=== PATIENT | male | born 1985 | race Caucasian/White ===

== ENCOUNTER 2024-04-02 12:48 | Emergency (ER) | payer OTHER, SELFPAY ==
--- NOTE | ~2024-04-02 | XR_ITS ---
EXAMINATION: XR chest 2V 04/02/2024 13:24 INDICATION: Recent upper respiratory infection. Cough. PROCEDURE: 2 view chest COMPARISON: No prior studies for comparison. FINDINGS: The lungs are clear. The cardiomediastinal silhouette is within normal limits. There are no pleural effusions. There is no pneumothorax suspected. IMPRESSION: 1: NO ACUTE CARDIOPULMONARY DISEASE. Reviewed, dictated and finalized at location B.
[2024-04-02 13:02] VITALS: PULSE 82; RESP 16; O2SAT 100
[2024-04-02 13:04] VITALS: BP 119/84; PULSE 82; RESP 16; TEMP 37.1; O2SAT 100
[2024-04-02 13:15] VITALS: PULSE 85; RESP 16; O2SAT 100
--- NOTE | 2024-04-02 13:22 | ED.GENADULT ---
HPI - General Adult General Chief complaint: Upper Respiratory Infection Stated complaint: fever/sweats/bodyaches/coughing alot Source: patient Mode of arrival: ambulatory Limitations: no limitations History of Present Illness HPI narrative: Patient presents for evaluation of a cough for the last 6 days. He states the cough is productive of yellow/green sputum. He has associated SOB, wheezing, fever, chills, and fatigue. No sick contacts in the immediately past but his son had mono about four months ago. he has been alternating Tylenol and ibuprofen for his symptoms. He smokes marijuana but not cigarettes Related Data Home Medications Medication Instructions Recorded Confirmed rosuvastatin 40 mg tablet 40 mg PO HS 04/02/24 04/02/24 Allergies Allergy/AdvReac Type Severity Reaction Status Date / Time No Known Allergies Allergy Verified 04/02/24 13:03 Review of Systems Review of Systems: CONSTITUTIONAL: Reports fever, chills, fatigue EYES: Denies visual changes, redness, or discharge. ENT: Denies rhinorrhea, congestion, sore throat, or otalgia. CARDIOVASCULAR: Denies chest pain, palpitations, or edema. RESPIRATORY: reports productive cough of yellow/ green sputum with wheezing and shortness of breath GASTROINTESTINAL: Denies abdominal pain, nausea, vomiting, or diarrhea. GENITOURINARY: Denies dysuria or hematuria. SKIN: Denies rash or itching. MUSCULOSKELETAL: Denies back pain, joint pain, or myalgia. NEUROLOGIC: Denies headache, numbness, dizziness, or weakness. PSYCHIATRIC: Denies anxiety or depression. [facility] Past Medical History Medical History (Updated 04/02/24 @ 14:27 by ZAIRA Tillman, ) Hyperlipidemia Surgical History Surgical History (Updated 04/02/24 @ 13:49 by ZAIRA Tillman, ) History of nasal surgery Family History Family History Mother Family history non-contributory Social History Social History (Updated 04/02/24 @ 13:51 by ZAIRA Tillman, ) Smoking status: Never smoker Substance use: current Substance use type: marijuana Living arrangements: with family Gender identity (if verbalized by the patient): Male Sexual Orientation (if Verbalized by the Patient): Straight or Heterosexual Spiritual care concerns: No Exam Narrative: GENERAL: Well-appearing, well-nourished, and in no acute distress. HEAD: Normocephalic, atraumatic. EYES: PERRLA and EOMI. ENT: Nares clear, no rhinorrhea or epistaxis. Mucous membranes moist. Oropharynx without tonsillar hypertrophy exudate or other lesions. Bilateral TMs pearly pastor nonbulging NECK: Supple. No adenopathy or masses. No carotid bruits or JVD CHEST: bilateral rales and wheezing noted in posterior lung eldridge HEART: Regular rate and rhythm. No murmur heard. Normal peripheral pulses. ABDOMEN: Soft, nontender, nondistended, normal active bowel sounds. EXTREMITIES: Normal range of motion. No edema. SKIN: Warm, dry, no rash. NEURO: No focal deficits. Alert and oriented x3. PSYCH: Normal mood and affect. Course Course Emergency Course: This is a 39-year-old male who presented for evaluation of cough. Chest x-ray negative for pneumonia. He was given Solu-Medrol and nebulizer with improvement in his symptoms thereafter. Exam is consistent with viral URI. Will discharge with prednisone for wheezing, but overall and Tessalon. Follow up with primary provider. Go to the ER for worsening symptoms. Patient in agreement with plan of care. Level of Care: Express Care Visit Vital Signs Vital signs: Vital Signs Oxygen Delivery Room Air 04/02/24 13:02 Temperature 37.1 C 04/02/24 13:04 Pulse Rate 82 04/02/24 13:04 Respiratory Rate 16 04/02/24 13:04 Blood Pressure 119/84 04/02/24 13:04 Pulse Oximetry 100 04/02/24 13:04 Oxygen Delivery Room Air 04/02/24 13:02 Medical Decision Making Vital
[2024-04-02] MEDS: IPRATROPIUM 0.5 MG/ALBUTEROL SULFATE 2.5 MG AMPUL.NEB 3 ML INHALATION (13:45)
[2024-04-02] MEDS: methylPREDNISolone SOD SUCC 125 MG VIAL IM (13:46)
== END 2024-04-02 14:29 | disposition home or self-care (01) ==
PROVIDERS: Emergency Provider Nurse Practitioner
DX: J06.9 Acute upper respiratory infection, unspecified (principal); F12.90 Cannabis use, unspecified, uncomplicated; E78.5 Hyperlipidemia, unspecified
CPT/HCPCS: 71046; 94640; 96372; 99213; G0463; J2919